=== PATIENT | female | born 1990 | race Caucasian/White ===

== ENCOUNTER 2016-10-09 16:24 | Emergency (ER) | payer MEDICAID ==
[2016-10-09 16:59] VITALS: TEMP 97.6
[2016-10-09 17:40] VITALS: BP 119/56; PULSE 70; BMI 23.4
[2016-10-09] MEDS ORDERED: Lidocaine 2%-Epinephrine 1:100,000 20ml vial INF ONE (17:43)
--- NOTE | 2016-10-09 17:43 | EDPRACDOC ---
- General Information Chief Complaint: Wound Stated Complaint: ABSCESS Time Seen by Provider: 10/09/16 17:38 Information Source: Patient Mode of Arrival:: Car Home Medications: Home Medications Hydrocodone/Acetaminophen [Lortab 5-325 mg Tablet] 1 each PO Q4H PRN #10 tablet 05/08/16 Sulfamethoxazole/Trimethoprim [Bactrim Ds Tablet] 1 tab PO BID #14 tab 05/08/16 Ibuprofen Tablet [Motrin] 800 mg PO TID PRN #30 tab 10/09/16 Sulfamethoxazole/Trimethoprim [Bactrim Ds Tablet] 1 tab PO BID #20 tab 10/09/16 Allergies/Adverse Reactions: Allergies Allergy/AdvReac Type Severity Reaction Status Date / Time No Known Allergies Allergy Verified 05/08/16 23:06 - History of Present Illness Onset: YESTERDAY HPI: PT COMPLAINS OF RED, SWOLLEN AREA RIGHT UPPER ARM SINCE YESTERDAY, NO FEVER OR CHILLS, NO N/V, PT ADMITS TO IVDA (PAIN PILLS) Location: Reports: Extremity Last Tetanus: Yes Relevent History Of: Reports: IV Drug Use Prior Abscess: Reports: Different Pain: Reports: Severe Quality: Reports: Painful, Red Associated Signs & Symptoms: Denies: Chills, Fever, Proximal Streaking ED Past Medical History - History Reviewed Yes Nurses notes reviewed and agree except as marked - Patient Medical History Psychological History: Reports: Substance Use Disorder (two years ago). Denies : Depression Systemic History: Reports: Diabetes (gestational). Denies: Anemia, Lupus Surgical History: Reports: Tonsillectomy (in childhood), Tonsillectomy/ Adnoidectomy - Family Medical History Reports: Hypertension (MOTHER), Diabetes (MOTHER). Denies: Cancer, Stroke, Cardiac Disorders - Social Medical History Smoking Status: Heavy tobacco smoker (5 or more cigarettes/day or daily pipe/ cigar) Social History: Reports: Substance Use Disorder (two years ago) EDM Review of Systems - Review of Systems Constitutional: negative: Chills, Fever Gastrointestinal: negative: Nausea, Vomiting Neurological: negative: Dizziness, Numbness, Weakness Musculoskeletal: No Symptoms Reported Integumentary: Wound - Physical Exam Constitutional: Alert (Awake), No apparent distress Oriented to: Time, Person, Place Last recorded Vital Signs: Last Vital Signs Temp 97.6 F 10/09/16 17:39 Pulse 70 10/09/16 17:39 Resp 20 10/09/16 17:39 BP 119/56 L 10/09/16 17:39 Pulse Ox 100 10/09/16 17:39 Oxygen Pulse Oxygen Saturation 100 O2 Device Room Air Oxygen Flow Rate Fraction of Inspired Oxygen ( FIO2) - HEENT Head: Normal ( normocephalic) - Integumentary Skin: Warm, Dry, Other (TNTC PUNCTURE WOUNDS, SCARS AND BRUISING FROM IVDA) - Neurologic Memory Impaired: Normal Motor Function: Normal (Normal tone, Pulses 2+ No cyanosis or edema, FROM) Cranial Nerve: Normal (CN II-X11 intact sensation, strength 5/5) Cerebellar: Normal Mood Description: Normal Perception: Normal ED Abscess/Mass Exam - Integumentary Skin: Warm, Dry Mass: Size (3 CM), Red, Tender, Warm, Fluctuant, Local Cellulitis Lymphatics: Normal ED Procedures - Incision and Drainage Informed of risks, benefits and alternatives described.: Yes Informed Consent Signed: Verbal Site: RIGHT UPPER ARM Indication: Painful Mass Anesthetic: Lidocaine, with Epi Prep: Betadine Blade Size: 11 Incised Site drained: Reports: Blood, Pus Incised site was: Irrigated, Not Packed with Iodoform - Differential Diagnosis Abscess, Cellulitis Decision Time to Discharge: 17:57 - Departure Disposition: Home Condition: Stable Final Diagnosis: Abscess of right upper extremity Instructions: MRSA (Methicillin Resistant Staphylococcus Aureus) (ED) Education/Counseling Given To: Patient Education/Counseling Given Regarding: Diagnosis, Treatment, Prognosis, Follow Up Referrals: Lazaro Villafuerte MD [Staff Physician] - One Week Prescriptions: Ibuprofen Tablet [Motrin] 800 mg PO TID PRN #30 tab PRN Reason: Pain Sulfamethoxazole/Trimethoprim [Bactrim Ds Tablet] 1 tab PO BID #20 tab Additional Instructions: Keep wound clean and dry, apply warm compresses to affected area 20 mins at a time 4 - 5 times daily, return to the ED for any worsening symptoms or concerns. PLEASE STOP USING IV DRUGS, FOLLOW UP WITH [facility] OR [facility] FOR SUBSTANCE ABUSE COUNSELING.
== END 2016-10-09 18:05 | disposition home or self-care (01) ==
LOC: EDMC 16:24
DX: L02.413 Cutaneous abscess of right upper limb (principal)
CPT/HCPCS: 10060; 99283; J3490